=== PATIENT | female | born 1960 | race African-American/Black ===

== ENCOUNTER 2017-04-19 11:46 | Emergency (ER) | payer OTHER ==
[2017-04-19 13:01] LABS: #Basophils 0.1 thou/uL (0.0-0.2); #Lymphocytes 2.8 thou/uL (1.20-3.40); #Monocytes 0.8 thou/uL (0.11-0.59); #Neutrophils 2.6 thou/uL (1.40-6.50); %Basophils 0.9 % (0.0-1.0); %Eosinophils 0.6 % (0.0-10.0); %Lymphocytes 44.7 % (21.0-51.0); %Monocytes 12.3 % (0.0-10.0); %Neutrophils 41.5 % (42.0-75.0); Hemoglobin 13.3 g/dL (12.0-16.0); Mean Corpuscular HGB CONC 33.3 g/dL (32.0-36.0); Mean Corpuscular Hemoglobin 31.1 pg (27.0-31.0); Mean Corpuscular Volume 93.4 fl (81.0-99.0); Mean Platelet Volume 8.8 fL (7.4-10.4); Platelet Count 202 thou/uL (130-400); RBC Distribution Width 11.9 % (11.5-14.5); Red Blood Cell (RBC) Count 4.27 mill/uL (4.20-5.40); White Blood Cell (WBC) Count 6.1 thou/uL (4.8-10.8)
--- NOTE | 2017-04-19 13:21 | RAD ---
PORTABLE CHEST ONE VIEW: 04/19/2017 12:23 p.m. HISTORY: Syncope. FINDINGS: The heart size is normal. The lungs are well expanded without focal areas of consolidation, pneumoni a, or pleural effusions. IMPRESSION: No radiographic evidence of acute cardiopulmonary process. POS: [facility]
[2017-04-19 13:22] LABS: ALT (SGPT) 12 U/L (8-55); AST (SGOT) 22 U/L (5-34); Albumin 4.3 g/dL (3.5-5.0); Alkaline Phosphatase 71 U/L (40-150); Anion Gap 15 mmol/L (10-20); BUN (Urea Nitrogen) 8 mg/dL (9.8-20.1); Bilirubin, Total 0.3 mg/dL (0.2-1.2); CK (CPK) 334 U/L (29-168); Calc. Creatinine Clearance 0 mL/min (70-130); Calcium 10.1 mg/dL (7.8-10.44); Carbon Dioxide 24 mmol/L (22-29); Chloride 104 mmol/L (98-107); Estimated GFR-MDRD 69; Glucose 100 mg/dL (70-105); Lipase 18 U/L (8-78); Protein, Total 8.3 g/dL (6.0-8.3); Sodium 139 mmol/L (136-145)
[2017-04-19 13:26] LABS: CKMB 2.8 ng/mL (0-6.6); Troponin I Less than 0.010 ng/mL (< 0.028)
--- NOTE | 2017-04-19 13:53 | CT ---
CT BRAIN NONCONTRAST: HISTORY: A 56-year-old female with altered mental status and syncope. FINDINGS: There is no midline shift or any other mass effect. There is no evidence of acute intracranial hemor rhage, large cortical infarct, obstructive hydrocephalus, or extraaxial fluid collection. The calvar ium is intact. IMPRESSION: No acute intracranial findings. jn [] POS: [facility]
[2017-04-19] MEDS ORDERED: Acetaminophen 500 MG TAB ONE (14:17)
== END 2017-04-19 14:24 | disposition home or self-care (01) ==
LOC: ERS 11:46
DX: F43.9 Reaction to severe stress, unspecified (principal); F43.21 Adjustment disorder with depressed mood; E78.5 Hyperlipidemia, unspecified; G43.909 Migraine, unspecified, not intractable, without status migrainosus
CPT/HCPCS: 70450; 71010; 80053; 82553; 83690; 84484; 85025; 93005

== ENCOUNTER 2018-02-19 15:29 | Outpatient (CLI) | payer OTHER ==
--- NOTE | 2018-02-19 17:24 | RAD ---
TWO VIEWS LUMBOSACRAL SPINE 02/19/18 COMPARISON: None. HISTORY: [facility] exam with back pain. FINDINGS: Views of the lumbosacral spine shows normal height and alignment of the vertebral bodies and interver tebral discs without fracture or subluxation. There is moderate posterior facet arthrosis of the lowe r lumbosacral spine. No significant osteophyte formation is seen. 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 POS: [facility]
== END 2018-02-19 15:30 | disposition home or self-care (01) ==
LOC: BICRAD 15:29
PROVIDERS: ATTEND Internal Medicine
DX: M54.5 Low back pain (principal); M47.897 Other spondylosis, lumbosacral region
CPT/HCPCS: 72100